=== PATIENT | male | born 1985 | race Caucasian/White ===

== ENCOUNTER 2018-08-26 06:47 | Emergency (ER) | payer OTHER ==
[~2018-08-26] VITALS: Ht 165.1 cm; Wt 79.4 kg
[2018-08-26] MEDS ORDERED: PROCHLORPERAZINE 10 MG/2 ML VIAL. IV ONE (07:15)
[2018-08-26] MEDS ORDERED: IV NORMAL SALINE 1,000ML 1,000 ML IV ONE (07:15)
--- NOTE | 2018-08-26 07:17 | PHYS DOC ---
Past History Past Medical History: No Pertinent History Past Surgical History: No Surgical History Smoking: Non-smoker Alcohol Use: Occasionally Drug Use: None Adult General Chief Complaint Chief Complaint: GI PROBLEM HPI HPI Patient is a 33-year-old male presents complaining of abdominal pain, nausea, vomiting, and diarrhea for the past 2-1/2 weeks. Has noted some blood in his stool. He has been seen at [facility] several times, been placed on antibiotics 5 days ago without any improvement in symptoms. Nothing makes the symptoms better or worse. He reports that his pain was initially improving but has become worse over the past 48 hours. Some blood in the stool, only really noted with bowel movements and wiping. No blood otherwise in his underwear. Nothing seems to make the symptoms better or worse. No recent out of the country travel. Patient was in [place] when symptoms started. Patient does have a brother with ulcerative colitis. Patient has noted an approximately 12 pound weight loss since this started. Symptoms are moderate to severe in intensity.[] Review of Systems Review of Systems Constitutional: Denies fever or chills [] Eyes: Denies change in visual acuity, redness, or eye pain [] HENT: Denies nasal congestion or sore throat [] Respiratory: Denies cough or shortness of breath [] Cardiovascular: No additional information not addressed in HPI [] GI: Denies abdominal pain, nausea, vomiting, bloody stools or diarrhea [] : Denies dysuria or hematuria [] Musculoskeletal: Denies back pain or joint pain [] Integument: Denies rash or skin lesions [] Neurologic: Denies headache, focal weakness or sensory changes [] Endocrine: Denies polyuria or polydipsia [] All other systems were reviewed and found to be within normal limits, except as documented in this note. Current Medications Current Medications Current Medications Medications (Trade) Dose Ordered Sig/Hari Start Time Stop Time Status Last Admin Dose Admin Prochlorperazine Edisylate (Compazine) 5 mg 1X ONCE 08/26/18 07:15 08/26/18 07:16 UNV Sodium Chloride 1,000 ml @ 1,000 mls/hr 1X ONCE 08/26/18 07:15 08/26/18 08:14 UNV Physical Exam Physical Exam Constitutional: Well developed, well nourished, no acute distress, non-toxic appearance. [] HENT: Normocephalic, atraumatic, bilateral external ears normal, oropharynx moist, no oral exudates, nose normal. [] Eyes: PERRLA, EOMI, conjunctiva normal, no discharge. [] Neck: Normal range of motion, no tenderness, supple, no stridor. [] Cardiovascular:Heart rate regular rhythm, no murmur [] Lungs & Thorax: Bilateral breath sounds clear to auscultation [] Abdomen: Bowel sounds normal, soft, no tenderness, no masses, no pulsatile masses. [] Skin: Warm, dry, no erythema, no rash. [] Back: No tenderness, no CVA tenderness. [] Extremities: No tenderness, no cyanosis, no clubbing, ROM intact, no edema. [] Neurologic: Alert and oriented X 3, normal motor function, normal sensory function, no focal deficits noted. [] Psychologic: Affect normal, judgement normal, mood normal. [] EKG EKG [] Radiology/Procedures Radiology/Procedures EXAM: CT Abdomen and Pelvis with IV contrast CLINICAL HISTORY: Left lower abdominal pain. COMPARISON: none TECHNIQUE: Helical CT of the abdomen and pelvis was performed following the administration of intravenous contrast. Axial, coronal and sagittal reformatted images were generated. PQRS compliance statement - One or more of the following individualized dose reduction techniques were utilized for this study: 1. Automated exposure control 2. Adjustment of the mA and/or kV according to patient size 3. Use of iterative reconstruction technique FINDINGS: Lower chest: Lung bases are clear. Abdomen and Pelvis: Focal low-attenuation along the falciform ligament likely focal fatty infiltration. Gallbladder is normal. No biliary ductal dilatation. Adrenal glands are normal. Spleen is unremarkable. Pancreas is unremarkable. Symmetric nephrograms. Subcentimeter hypodense right interpolar renal lesion is too small to accurately characterize. No hydronephrosis. Diffuse colonic wall thickening and fat infiltration/inflammatory change from the splenic flexure to the rectum. No small or large bowel dilatation to suggest bowel obstruction. Appendix is retroflexed, normal in appearance. Several small lymph nodes are seen along the descending colon and sigmoid, possibly reactive. Otherwise no abdominal or pelvic lymphadenopathy. No abdominal pelvic ascites. There is diffuse bladder wall thickening with inflammatory change may be seen with cystitis. Bones: Osseous structures are grossly unremarkable. IMPRESSION: 1. Colonic wall thickening and associated inflammatory change from the splenic flexure to the rectum with associated prominent lymph nodes may represent infectious or inflammatory colitis. Given distribution, ischemic colitis is not excluded. 2. Marked diffuse bladder wall thickening is favored to represent cystitis.[] Course & Med Decision Making Course & Med Decision Making Pertinent Labs and Imaging studies reviewed. (See chart for details) ED course: Patient arrived, was placed in bed, and tolerated exam well. He was able to tolerate oral contrast and was transported to and from [place] with any complications. After the return of the laboratory and imaging findings, these were discussed with the patient and family who voiced understanding. Consultation was made with the hospitalist service for admission at [facility] given their greater depth of gastroenterology coverage. Patient was transported in improved condition. Medical decision making: Patient appears to have colitis that is not responding to current therapy. No evidence of an obstruction, perforation, nor abscess. No evidence of need for urgent surgical intervention. Being [facility] that has GI specialty service.[] Dragon Disclaimer Dragon Disclaimer This electronic medical record was generated, in whole or in part, using a voice recognition dictation system. Departure Departure: Impression: Primary Impression: Colitis Additional Impressions: Renal insufficiency Hypokalemia Disposition: 05 TRANSFER OTHER Admitting Physician: Inocente Nunez Condition: IMPROVED Referrals: WAQAS CABRERA MD (PCP) Problem Qualifiers AMOR HERNANDEZ DO Aug 26, 2018 07:16
[2018-08-26 07:43] LABS: BASO % 0 % (0-3); EOS # 0.1 x10^3/uL (0.0-0.7); EOS % 0 % (0-3); HEMATOCRIT 45.4 % (39.0-53.0); HEMOGLOBIN 15.6 g/dL (13.0-17.5); LYMPH # 1.3 x10^3/uL (1.0-4.8); LYMPH % 7 % (24-48); MEAN CORPUSCULAR HEMOGLOBIN 29 pg (25-35); MEAN CORPUSCULAR HGB CONC 34 g/dL (31-37); MEAN CORPUSCULAR VOLUME 85 fL (79-100); MONO # 1.5 x10^3/uL (0.0-1.1); MONO % 9 % (0-9); NEUT # 14.2 x10^3uL (1.8-7.7); NEUT % 83 % (31-73); PLATELET COUNT 446 x10^3/uL (140-400); RED BLOOD COUNT 5.36 x10^6/uL (4.30-5.70); WHITE BLOOD COUNT 17.1 x10^3/uL (4.0-11.0)
[2018-08-26 07:54] LABS: ALBUMIN 2.9 g/dL (3.4-5.0); ALBUMIN/GLOBULIN RATIO 0.6 (1.0-1.7); CALCIUM 9.4 mg/dL (8.5-10.1); CREATININE 1.4 mg/dL (0.7-1.3); POTASSIUM 3.2 mmol/L (3.5-5.1); TOTAL BILIRUBIN 0.4 mg/dL (0.2-1.0); TOTAL PROTEIN 7.7 g/dL (6.4-8.2)
[2018-08-26] MEDS ORDERED: IOHEXOL 240 MG/ML 50ML VIAL. PO ONE (08:00)
[2018-08-26] MEDS ORDERED: IOHEXOL 300 MG/ML 75 ML VIAL. IV ONE (08:00)
[2018-08-26] MEDS ORDERED: HYOSCYAMINE 0.125 MG TAB.RAPDIS PO ONE (08:00)
[2018-08-26 08:03] LABS: BACTERIA,URINE FEW /HPF (0-FEW); BILIRUBIN,URINE MOD (NEG); CLARITY,URINE HAZY; COLOR,URINE YELLOW; GLUCOSE,URINE NEG (NEG); NITRITE,URINE NEG (NEG); RBC,URINE 0 /HPF (0-2); SQUAMOUS EPITHELIAL CELL,UR MOD /LPF; UROBILINOGEN,URINE 0.2 mg/dL (0.2 mg/dL)
[2018-08-26 08:21] LABS: FECAL OB PT POSITIVE (NEG)
[2018-08-26 09:09] LABS: % BANDS 12 % (0-9); % BASOS 1 % (0-3); % EOS 1 % (0-5); % LYMPHS 16 % (24-48); % MONOS 4 % (0-10); % SEGS 66 % (35-66); PLT ESTIMATE INCREASED (ADEQUATE)
--- NOTE | 2018-08-26 09:17 | RAD ---
EXAM: CT Abdomen and Pelvis with IV contrast CLINICAL HISTORY: Left lower abdominal pain. COMPARISON: none TECHNIQUE: Helical CT of the abdomen and pelvis was performed following the administration of intravenous contrast. Axial, coronal and sagittal reformatted images were generated. PQRS compliance statement - One or more of the following individualized dose reduction techniques were utilized for this study: 1. Automated exposure control 2. Adjustment of the mA and/or kV according to patient size 3. Use of iterative reconstruction technique FINDINGS: Lower chest: Lung bases are clear. Abdomen and Pelvis: Focal low-attenuation along the falciform ligament likely focal fatty infiltration. Gallbladder is normal. No biliary ductal dilatation. Adrenal glands are normal. Spleen is unremarkable. Pancreas is unremarkable. Symmetric nephrograms. Subcentimeter hypodense right interpolar renal lesion is too small to accurately characterize. No hydronephrosis. Diffuse colonic wall thickening and fat infiltration/inflammatory change from the splenic flexure to the rectum. No small or large bowel dilatation to suggest bowel obstruction. Appendix is retroflexed, normal in appearance. Several small lymph nodes are seen along the descending colon and sigmoid, possibly reactive. Otherwise no abdominal or pelvic lymphadenopathy. No abdominal pelvic ascites. There is diffuse bladder wall thickening with inflammatory change may be seen with cystitis. Bones: Osseous structures are grossly unremarkable. IMPRESSION: 1. Colonic wall thickening and associated inflammatory change from the splenic flexure to the rectum with associated prominent lymph nodes may represent infectious or inflammatory colitis. Given distribution, ischemic colitis is not excluded. 2. Marked diffuse bladder wall thickening is favored to represent cystitis. Electronically signed by: Teodoro Manzo MD (08/26/2018 9:14 AM) [id number]
[2018-08-26] MEDS ORDERED: IV RINGERS SOLUTION,LACTATED 1,000 ML IV ONE (09:45)
[2018-08-26 09:50] VITALS: BP 148/79
== END 2018-08-26 10:39 | disposition short-term general hospital (02) ==
LOC: ER 06:47
DX: K52.9 Noninfective gastroenteritis and colitis, unspecified (principal); N28.9 Disorder of kidney and ureter, unspecified; E87.6 Hypokalemia
CPT/HCPCS: 36415; 74177; 80053; 81001; 82274; 83690; 85007; 85025; 87045; 96361; 96374; 99285; J0780; J7120; Q9966; Q9967; J7030